=== PATIENT | female | born 1950 | race African-American/Black ===

== ENCOUNTER 2019-04-04 09:43 | Observation (INO) | payer MEDICARE, OTHER ==
[~2019-04-04] VITALS: Ht 162.6 cm; Wt 88.9 kg
[2019-04-04 10:00] VITALS: BP 112/78
--- NOTE | 2019-04-04 10:00 | NUR ---
ED Nurse Note: Patient YOLIE from SNF c/o LLQ abdominal pain x 1 day w/ n/v diarrhea. Patient states she vomited twice, once this AM, and once last night. Patient AxO x 4, no s/s of acute distress. Patient on the nurse monitoring, bed in lowest position. Blood and urine sent to lab. 20 g IV started in left forearm.
--- NOTE | 2019-04-04 10:36 | Diagnostic Imaging Report ---
INDICATION: Abdominal pain TECHNIQUE: Continuous helical transaxial imaging of the abdomen and pelvis was obtained from the lung bases to the pubic symphysis. No intravenous contrast was administered. Coronal 2-D reformats were also obtained. Automatic Exposure Control was utilized. Total Dose length Product (DLP): [address] Dose Index Volume (CTDIvol): 35.5 mGy Comparison: none FINDINGS: Lungs: Artifact limits evaluation. There is mild basal atelectasis are present. The heart is enlarged.. Liver: Unremarkable Gallbladder/biliary system: No gallstones are identified. There is no evidence of intrahepatic or extrahepatic biliary ductal dilatation. Spleen: Unremarkable Pancreas: Unremarkable Kidneys/Bladder: Punctate 2 mm nonobstructive stone demonstrated within the left kidney. There is no hydronephrosis.. Adrenal glands: Unremarkable Bowel: Mild fluid filled distended small bowel noted in a generalized fashion without evidence of a transition. Appendix is normal. Aorta/IVC: Mild calcification of aorta demonstrated. No aneurysm identified. Peritoneum: There is no free fluid. Bones: Unremarkable IMPRESSION: Mild fluid filled distended small bowel. Consider enteritis/ileus. Punctate nonobstructive stone within the left kidney. Atherosclerotic vascular disease. Other incidental findings as above Note: Evaluation of solid organs is limited on non contrast imaging. The CT scanner at [facility] is accredited by the [employer] and the scans are performed using dose optimization techniques as appropriate to a performed exam including Automatic Exposure control.
[2019-04-04 11:12] LABS: APPEARANCE,URINE CLEAR; BILIRUBIN, URINE NEGATIVE (NEGATIVE); GLUCOSE, URINE (UA) NEGATIVE (NEGATIVE); HEMATOCRIT 38.7 % (37.0-47.0); HEMOGLOBIN 13.1 G/DL (12.0-16.0); KETONES,URINE 1+ (NEGATIVE); LEUKOCYTE ESTERASE ,URINE 1+ (NEGATIVE); MEAN CORPUSCULAR VOLUME 84 FL (80-99); NITRITE,URINE NEGATIVE (NEGATIVE); PH,URINE 6 (4.5-8.0); PLATELET COUNT 249 K/UL (150-450); PROTEIN,URINE NEGATIVE (NEGATIVE); RED BLOOD COUNT 4.63 M/UL (4.20-5.40); RED CELL DISTRIBUTION WIDTH 12.7 % (11.6-14.8); UROBILINOGEN,URINE 1 MG/DL (0.0-1.0); WHITE BLOOD COUNT 10.5 K/UL (4.8-10.8)
[2019-04-04 11:14] LABS: COLOR,URINE YELLOW
[2019-04-04 11:23] LABS: ANION GAP 9 mmol/L (5-15); BLOOD UREA NITROGEN 14 mg/dL (7-18); CALCIUM 9.4 MG/DL (8.5-10.1); CARBON DIOXIDE 29 MMOL/L (21-32); CHLORIDE 104 MMOL/L (98-107); CREATININE 0.8 MG/DL (0.55-1.30); POTASSIUM 4.9 MMOL/L (3.5-5.1); SODIUM 141 MMOL/L (136-145)
[2019-04-04 11:28] LABS: ALANINE AMINOTRANSFERASE 34 U/L (12-78); ALBUMIN 3.4 G/DL (3.4-5.0); ALBUMIN/GLOBULIN RATIO 0.6 (1.0-2.7); ALKALINE PHOSPHATASE 96 U/L (46-116); ASPARTATE AMINO TRANSFERASE 48 U/L (15-37); BILIRUBIN,TOTAL 0.3 MG/DL (0.2-1.0)
--- NOTE | 2019-04-04 11:57 | Emergency Room Report ---
History of Present Illness General Chief Complaint: Abdominal Pain Source: Patient, Medical Record, EMS Present Illness HPI Patient is a 68-year-old female brought in from her extended care facility for abdominal pain, nausea, vomiting and diarrhea since last night. Denies any bloody emesis or blood in the diarrhea. Patient denies any fever or chills. She denies any chest pain or shortness of breath. Patient denies any fever or chills. Allergies: Coded Allergies: No Known Allergies (Unverified , 04/04/19) Patient History Reviewed Nursing Documentation: PMH: Agreed; PSxH: Agreed Nursing Documentation-PMH Past Medical History: No History, Except For Hx Hypertension: Yes Hx Diabetes: Yes Review of Systems All Other Systems: negative except mentioned in HPI Physical Exam Vital Signs Date Time Temp Pulse Resp B/P (MAP) Pulse Ox O2 Delivery O2 Flow Rate FiO2 04/04/19 09:52 98.2 88 18 112/78 (89) 98 Room Air Sp02 EP Interpretation: reviewed, normal Head: normocephalic, atraumatic Eyes: bilateral eye normal inspection, bilateral eye PERRL ENT: hearing grossly normal, normal pharynx, no angioedema, normal voice Neck: full range of motion, supple/symm/no masses Respiratory: chest non-tender, lungs clear, normal breath sounds, speaking full sentences Cardiovascular #1: regular rate, rhythm, no edema Gastrointestinal: non-distended, other - Mild epigastric and periumbilical tenderness to palpation with no guarding or rebound. Rectal: deferred Musculoskeletal: back normal, normal range of motion, calf tenderness, gait/ station normal, non-tender Psychiatric: judgement/insight normal, memory normal, mood/affect normal, no suicidal/homicidal ideation Skin: no rash, normal color Medical Decision Making Diagnostic Impression: Primary Impression: Acute gastroenteritis Additional Impression: Ileus ER Course Patient's vital signs are stable. CT consistent with possible enteritis. Patient's labs demonstrate no significant acute abnormalities. Paging the patient's primary care physician at 11:55 AM I spoke with covering MD for Dr. Lao. Will admit to observation for hydration, further treatment and evaluation. EKG Diagnostic Results EKG Time: 10:55 Rate: normal Rhythm: NSR Other Impression T wave inversion V2 V3 V4 V5 Rhythm Strip Diag. Results Rhythm Strip Time: 11:58 EP Interpretation: yes Rate: 82 Rhythm: NSR, no PVC's, no ectopy Last Vital Signs Date Time Temp Pulse Resp B/P (MAP) Pulse Ox O2 Delivery O2 Flow Rate FiO2 04/04/19 10:00 98.2 88 18 112/78 98 Room Air Disposition: PLACE IN OBSERVATION Condition: Improved Corry Newby M.D. Apr 04, 2019 11:57
--- NOTE | 2019-04-04 16:27 | NUR ---
ED Nurse Note: Report given to Rashel SALAZAR
--- NOTE | 2019-04-04 17:50 | NUR ---
NURSE NOTES: Pt was admitted from ED via [facility]. RA. No c/o of pain/distress at this moment. IV on LFA 20g intact and patent, with SL. Pt is bedbound and able to turn side to side with assistance. Side rails x 2. Bed in the lowest, locked, and alarm on. Call light within reach. Educated pt to press call light when assistance is needed. Pictures were taken and uploaded. Belongings were accounted. Paged for admission orders and awaiting for response. Will continue to monitor
[2019-04-04] MEDS ORDERED: Albuterol/Ipratropium 3ml neb HHN PRN (18:15)
[2019-04-04 18:28] VITALS: BP 128/66
--- NOTE | 2019-04-04 19:05 | NUR ---
HAND-OFF: Report given to MARIE Mejias.
--- NOTE | 2019-04-04 19:20 | NUR ---
NURSE NOTES: Patient awake and verbally responsive to let her needs known. Breathing unlabored on room air without distress. Denies pain at this time. IV noted on left forearm intact. Bed placed at the lowest with alarm, brake, and siderails up for safety. Call light placed within reach. Will continue to monitor and provide care as ordered.
[2019-04-04 20:00] VITALS: BP 111/64
[2019-04-04] MEDS: Enoxaparin 40mg Inj SUBQ SCH (20:34)
--- NOTE | 2019-04-04 23:40 | NUR ---
NURSE NOTES: Provided proper incontinence care. No diarrhea noted at this time. Will continue to monitor.
[2019-04-05] VITALS: BP 107/57
[2019-04-05 04:00] VITALS: BP 106/52
--- NOTE | 2019-04-05 05:45 | NUR ---
NURSE NOTES:WOUND CARE NOTES:Pt skin assessment completed with Primary nurse in attendance.Hypopigmentation noted to mons pubis and vaginal labia majora. Sacrum without erythema or evidence of skin breakdwon, Scattered areas of darker skin tone noted to R and L buttocks.Both heels are dry,callused with cracked skin . No erythema noted to R or L heels. Wound prevention protocols initiated. Cavilon skin barrier applied to both hips and both heels. Each area individually covered with Optifoam drsgs. Moisture Barrier Paste applied to sacrum and covered with Optifoam drsg.Pt positioned with pillow in side and both heels floated off mattress with pillow. Tx.plan: Apply Moisture Barrier paste to Sacrum. Cover with Optifoam drsg. Change every 3 days and prn. Apply Cavilon Skin Barrier to both heels. Cover each heel with Optifoam drsg. Change every 7 days and prn. Reposition at least every 2hours or as tolerated. Off-load heels with pillow.
--- NOTE | 2019-04-05 06:39 | NUR ---
NURSE NOTES: Seen patient with All wound care nurse. Patient has hyperpigmentation on perianal area and healing old scar on sacral. Placed optifoam on sacral and bilateral heels for preventive measures. Will continue to monitor.
[2019-04-05 07:09] LABS: ALANINE AMINOTRANSFERASE 45 U/L (12-78); ALBUMIN 2.8 G/DL (3.4-5.0); ALBUMIN/GLOBULIN RATIO 0.6 (1.0-2.7); ALKALINE PHOSPHATASE 73 U/L (46-116); ANION GAP 7 mmol/L (5-15); ASPARTATE AMINO TRANSFERASE 68 U/L (15-37); BILIRUBIN,TOTAL 0.3 MG/DL (0.2-1.0); BLOOD UREA NITROGEN 11 mg/dL (7-18); CALCIUM 8.2 MG/DL (8.5-10.1); CARBON DIOXIDE 28 MMOL/L (21-32); CHLORIDE 105 MMOL/L (98-107); CREATININE 0.8 MG/DL (0.55-1.30); POTASSIUM 3.6 MMOL/L (3.5-5.1); SODIUM 140 MMOL/L (136-145)
--- NOTE | 2019-04-05 07:31 | NUR ---
HAND-OFF: Report given to MARIE Kiser. Plan of care endorsed.
--- NOTE | 2019-04-05 07:40 | NUR ---
NURSE NOTES: Received patient on bed, awake. IV is intact and patent. Bed in low and locked position, call light in reach. Dressings dry and intact. No signs of respiratory distress or pain. Room board updated, will continue to monitor.
[2019-04-05 08:00] VITALS: BP 109/56
--- NOTE | 2019-04-05 09:00 | NUR ---
PT EVALUATION NOTE Patient seen for initial evaluation. Patient presents with generalized weakness which impairs patient's balance and ability to perform mobility tasks safely. Patient requires max assist of 2 for bed mobility, unable to perform transfers due to weakness. Patient will benefit from skilled inpatient PT intervention to address strength, balance and safety for increased level of functional mobility. Recommend discharge to SNF once medically cleared by MD. Addendum: 04/05/19 at 1014 by KRISHAN FARLEY PT Amended: Links added.
[2019-04-05 12:00] VITALS: BP 122/59
--- NOTE | 2019-04-05 15:19 | History and Physical ---
History of Present Illness General Date patient seen: Apr 05, 2019 Reason for Hospitalization: Abdominal Pain Present Illness HPI 68 year old female Brought in by ambulance from [facility] complaining of left lower quadrant abdominal pain 5/10 for 1 day, associated with nausea vomiting and diarrhea. Patient stated she vomited twice, once last night and once on the morning of presentation to the ER. Denies any bloody emesis or blood in the diarrhea. Patient denies any fever or chills. She denies any chest pain or shortness of breath. Patient denies any fever or chills. Past medical and surgical history: Hypertension, diabetes, obesity Social history: Lives in senior care facility, never smoked cigarettes, denies alcohol or illicit drug use Family history: Does not know Allergies: Coded Allergies: No Known Allergies (Unverified , 04/04/19) Patient History Healthcare decision maker N Resuscitation status Full Code Advanced Directive on File Review of Systems Constitutional: Denies: no symptoms, see HPI, chills, sweats, fever, malaise, weakness, other Eye: Denies: no symptoms, see HPI, eye pain, blurred vision, tearing, double vision, nose pain, nose congestion, acuity changes, discharge, other ENT: Denies: no symptoms, see HPI, ear pain, ear discharge, nose pain, nose congestion, throat pain, throat swelling, mouth pain, hearing loss, nasal discharge, other Respiratory: Denies: no symptoms, see HPI, cough, orthopnea, shortness of breath, stridor, wheezing, FLORES, sputum, other Cardiovascular: Denies: no symptoms, see HPI, chest pain, edema, palpitations, syncope, PND, other Gastrointestinal: Reports: abdominal pain, diarrhea, nausea, vomiting Genitourinary: Denies: no symptoms, see HPI, discharge, dysuria, frequency, hematuria, pain, retention, incontinence, urgency, vag bleed/dc, other Musculoskeletal: Denies: no symptoms, see HPI, back pain, gout, joint pain, joint swelling, muscle pain, muscle stiffness, other Skin: Denies: no symptoms, see HPI, rash, change in color, change in hair/nails , dryness, lesions, other Psychiatric: Denies: no symptoms, see HPI, prior hx, anxiety, depressed feelings, emotional problems, SI, HI, hallucinations, other Neurological: Denies: no symptoms, see HPI, headache, numbness, paresthesia, seizure, tingling, tremors, focal weakness, syncope, dizziness, other Endocrine: Denies: no symptoms, see HPI, excessive sweating, flushing, intolerance to temperature, increased thirst, increased urine, unexplained weight loss, other Hematologic/Lymphatic: Denies: no symptoms, see HPI, anemia, blood clots, easy bleeding, easy bruising, swollen glands, diathesis, other Physical Exam General Appearance: no apparent distress, other - Obese Lines, tubes and drains: peripheral HEENT: normocephalic, atraumatic, anicteric, mucous membranes moist, PERRL, EOMI Neck: non-tender, supple Respiratory/Chest: chest wall non-tender, lungs clear, normal breath sounds, no respiratory distress, no accessory muscle use Cardiovascular/Chest: normal peripheral pulses, normal rate, regular rhythm, no gallop/murmur, no JVD Abdomen: soft, no mass, tender - Left lower quadrant, no guarding, no rebound Extremities: normal range of motion, non-tender, normal inspection, no calf tenderness Skin Exam: normal pigmentation, other - hyperpigmentation on perianal area and healing old scar on sacral Neurologic: no motor/sensory deficits, oriented x 3, responsive Musculoskeletal: normal muscle bulk Last 24 Hour Vital Signs Date Time Temp Pulse Resp B/P (MAP) Pulse Ox O2 Delivery O2 Flow Rate FiO2 04/05/19 12:00 97.3 73 21 122/59 (80) 97 04/05/19 09:00 Room Air 04/05/19 08:00 98.6 79 20 109/56 (73) 98 04/05/19 04:00 98.3 81 18 106/52 (70) 95 04/05/19 00:00 98.8 87 18 107/57 (74) 96 04/04/19 21:00 Room Air 04/04/19 20:00 98.7 95 18 111/64 (80) 95 04/04/19 18:30 Room Air 04/04/19 18:28 99.9 97 20 128/66 (86) 92 Intake and Output 04/04/19 04/05/19 19:00 07:00 Intake Total 0 ml 1000 ml Balance 0 ml 1000 ml Intake Oral 0 ml IV Total 1000 ml # Voids 2 # Bowel Movements 1 Laboratory Tests Test 04/05/19 05:30 Sodium Level 140 MMOL/L (136-145) Potassium Level 3.6 MMOL/L (3.5-5.1) Chloride Level 105 MMOL/L (98-107) Carbon Dioxide Level 28 MMOL/L (21-32) Anion Gap 7 mmol/L (5-15) Blood Urea Nitrogen 11 mg/dL (7-18) Creatinine 0.8 MG/DL (0.55-1.30) Estimat Glomerular Filtration Rate > 60 mL/min (>60) Glucose Level 114 MG/DL (74-106) H Calcium Level 8.2 MG/DL (8.5-10.1) L Total Bilirubin 0.3 MG/DL (0.2-1.0) Aspartate Amino Transf (AST/SGOT) 68 U/L (15-37) H Alanine Aminotransferase (ALT/SGPT) 45 U/L (12-78) Alkaline Phosphatase 73 U/L (46-116) Total Protein 7.5 G/DL (6.4-8.2) Albumin 2.8 G/DL (3.4-5.0) L Globulin 4.7 g/dL Albumin/Globulin Ratio 0.6 (1.0-2.7) L Height (Feet): 5 Height (Inches): 4.00 Weight (Pounds): 180 Medications Current Medications Medications (Trade) Dose Ordered Sig/Jm Route PRN Reason Start Time Stop Time Status Last Admin Dose Admin Acetaminophen (Tylenol) 650 mg Q4H PRN ORAL Mild Pain (Pain Scale 1-3) 04/04/19 18:15 05/04/19 18:14 Acetaminophen (Tylenol) 650 mg Q4H PRN ORAL T>100.5 04/04/19 18:15 05/04/19 18:14 Albuterol/ Ipratropium (Albuterol/ Ipratropium) 3 ml Q4H PRN HHN Shortness of Breath 04/04/19 18:15 04/09/19 18:14 Dextrose (Dextrose 50%) 25 ml Q30M PRN IV Hypoglycemia 04/04/19 18:15 05/04/19 18:14 Dextrose (Dextrose 50%) 50 ml Q30M PRN IV Hypoglycemia 04/04/19 18:15 05/04/19 18:14 Enoxaparin Sodium (Lovenox) 40 mg Q24H SUBQ 04/04/19 20:00 05/04/19 19:59 04/04/19 20:34 Ondansetron HCl (Zofran) 4 mg Q6H PRN IVP Nausea & Vomiting 04/04/19 18:15 05/04/19 18:14 Pantoprazole (Protonix) 40 mg DAILY ORAL 04/05/19 09:00 05/05/19 08:59 04/05/19 08:38 Sodium Chloride 1,000 ml @ 100 mls/hr Q10H IVLG 04/04/19 19:02 05/04/19 19:01 04/05/19 14:[address] abdomen pelvis IMPRESSION: Mild fluid filled distended small bowel. Consider enteritis/ileus. Punctate nonobstructive stone within the left kidney. Atherosclerotic vascular disease. Other incidental findings as above Note: Evaluation of solid organs is limited on non contrast imaging. EKG is personally reviewed by me: No acute ST-T changes Labs remarkable for mildly elevated AST of 48, UA negative, lipase negative Assessment/Plan Problem List: (1) Acute gastroenteritis ICD Codes: K52.9 - Noninfective gastroenteritis and colitis, unspecified SNOMED: 83036861 (2) Ileus ICD Codes: K56.7 - Ileus, unspecified SNOMED: 246081210 (3) Hypertension ICD Codes: I10 - Essential (primary) hypertension SNOMED: 45298583 (4) Diabetes ICD Codes: E11.9 - Type 2 diabetes mellitus without complications SNOMED: 54461029 Status: stable Assessment/Plan: 68-year-old female from [facility] senior care [facility] presented with left lower quadrant abdominal pain 5 out of 10 and nausea vomiting, diarrhea. #Acute gastroenteritis #Ileus Place in observation IV fluids Monitor closely Pain control #Hypertension Continue to monitor, BP normal now. use as needed pain medications #Diabetes Insulin sliding scale as needed Fingerstick blood glucose is satisfactory I spent 70 minutes on this encounter. Greater than 50% spent counseling care coordination. Plan of care discussed with patient ED physician and RN Time of note may not reflect time of encounter. Bishop Baptiste M.D. Apr 05, 2019 15:19
[2019-04-05 16:00] VITALS: BP 117/62
--- NOTE | 2019-04-05 16:01 | NUR ---
CASE MANAGEMENT:INITIAL REVIEW 68 YR OLD FEMALE BIBA FROM [facility] CC;ABDOMINAL PAIN IS;ACUTE GASTROENTERITIS. ILEUS. 99.9 64 20 107/57 92% ON RA MG 1.6 AST 48 ABD/PELVIC CT - Mild fluid filled distended small bowel. Consider enteritis/ileus. IS;ZOFRAN IV X1 ADMITTED TO MED SURG FOR OBSERVATION OBSERVATION STATUS DCP;[facility]
--- NOTE | 2019-04-05 19:25 | NUR ---
HAND-OFF: Report given to MARIE Davis.
[2019-04-05 20:00] VITALS: BP 142/66
--- NOTE | 2019-04-05 20:00 | NUR ---
NURSE NOTES: Patient received in bed, awake and alert. IV intact, IVF infusing. Denies pain or discomfort at this time. Call light within reach. Will continue to monitor.
[2019-04-05] MEDS: Enoxaparin 40mg Inj SUBQ SCH (20:53)
[2019-04-06] VITALS: BP 116/71
[2019-04-06 04:01] VITALS: BP 131/59
--- NOTE | 2019-04-06 07:20 | NUR ---
NURSE NOTES: Handoff received from MARIE Mendoza. Patient received awake and alert and able to make needs known. No acute signs of distress noted. Patient requested more breakfast, called down and alerted kitchen. patient denies pain a this time, patient IV site is clean dry and intact, running prescribed fluids at 100ml/hr. call light within reach and bed in the low and locked position, will continue to monitor.
--- NOTE | 2019-04-06 07:51 | NUR ---
HAND-OFF: Report given to Keny SALAZAR.
[2019-04-06 08:00] VITALS: BP 130/59
--- NOTE | 2019-04-06 10:38 | NUR ---
*-* NO INSURANCE INFORMATION ON [facility] UNABLE TO SEND CLINICALS OR REVIEWS *-*
--- NOTE | 2019-04-06 11:58 | Discharge Summary ---
Discharge Summary Hospital Course Date of Admission Apr 04, 2019 at 14:58 Date of Discharge 04/06/19 Admitting Diagnosis ILEUS, GASTROENTERITIS HPI Lillie Mcpherson is a 68 year old female who was admitted on Apr 04, 2019 at 14:58 for Ileus,Gastroenteritis Hospital Course 68-year-old female from [facility] presented with left lower quadrant abdominal pain 5 out of 10 and nausea vomiting, diarrhea. #Acute gastroenteritis #Ileus Place in observation IV fluids Monitor closely Pain control #Hypertension Continue to monitor, BP normal now. use as needed pain medications #Diabetes Insulin sliding scale as needed Fingerstick blood glucose is satisfactory Today she is doing well, she is doing well. No more n,v,d. Abdomen soft non tender non distended. DC to SNF I spent 40 minutes on this encounter. Greater than 50% spent counseling care coordination. Time of note may not reflect time of encounter. Discharge Condition Upon Discharge: stable Discharge Vital Signs Last Vital Signs Date Time Temp Pulse Resp B/P (MAP) Pulse Ox O2 Delivery O2 Flow Rate FiO2 04/06/19 09:44 79 16 96 Room Air 04/06/19 08:00 98.7 130/59 (82) Discharge Disposition Patient was discharged to SNF. [facility] Discharge Diagnoses: (1) Acute gastroenteritis (2) Ileus (3) Diabetes (4) Hypertension Bishop Baptiste M.D. Apr 06, 2019 11:58
[2019-04-06 12:00] VITALS: BP 120/66
--- NOTE | 2019-04-06 14:52 | NUR ---
NURSE NOTES:Patient discharged in stable condition, left with EMS as patient is bed-bound. Patient educated on signs and symptoms that would require immediate medical attention, also informed patient to follow up with primary care physician within 7 days of discharge. Patient signed the discharge paperwork and belongings list. IV removed no bleeding or hematoma noted.
== END 2019-04-06 14:50 ==
LOC: EDBD 09:43 → EMR 14:53 → 4E 14:58 → EDBEDREQ 16:13
DX: K52.9 Noninfective gastroenteritis and colitis, unspecified (principal); K56.7 Ileus, unspecified; I10 Essential (primary) hypertension; E11.9 Type 2 diabetes mellitus without complications
CPT/HCPCS: 36415 ×2; 74176; 80053 ×2; 81003; 83690; 83735; 85007; 85025; 85610; 85730; 87081 ×2; 93005; 94664; 96374; 97110 ×2; 97112; 97162; 97530 ×2; 99284; G0378 ×2; J1650 ×2; J2405; J7030